=== PATIENT | female | born 1965 | race Caucasian/White ===

== ENCOUNTER 2018-11-28 09:49 | Day surgery (SDC) | payer OTHER, SELFPAY ==
[2018-11-28] VITALS (7 sets, daily range): BP systolic 106–117; BP diastolic 67–84; PULSE 86–94; RESP 10–16; TEMP 36–36.3; O2SAT 98–100; BMI 23.0
--- NOTE | 2018-11-28 11:34 | PM.HP.1 ---
History of Present Illness Date Patient Seen: 11/28/18 Time Patient Seen: 11:35 Chief complaint: [id number] Narrative: Maye is a very pleasant 52-year-old lady who presents for her 1st screening colonoscopy. She denies any problems or symptoms related to the function of her GI tract. She reports she needs colonoscopy as part of a health maintenance program. Patient History Social History household members: spouse Family & Social History Social History: household members spouse Meds Home Medications Medication Instructions Recorded Confirmed Type levothyroxine 75 mcg PO DAILY 11/28/18 11/28/18 History Allergies Allergy/AdvReac Type Severity Reaction Status Date / Time No Known Drug Allergies Allergy Verified 11/28/18 10:11 Review of Systems Review of Systems All systems reviewed & are unremarkable except as noted in HPI and below Exam Vital Signs (past 8 hours): - 11/28/18 10:07 Temperature 97.4 F L Pulse Rate 94 H Respiratory Rate 16 Blood Pressure 116/84 Pulse Oximetry 100 Oxygen Delivery Method Room Air Narrative Exam Narrative: Very well-appearing well-nourished and well-developed lady in no distress HEENT: Normocephalic atraumatic, pupils equal round reactive to light accommodation with anicteric sclera lungs: Clear bilaterally heart: Regular rate and rhythm abdomen: Soft, nontender, active bowel sounds extremities: Warm and well perfused and without edema Assessment & Plan Assessment & Plan narrative: Wonderful and generally healthy 52-year-old lady here for her 1st screening study. We have discussed the risks and benefits of colonoscopy including but not limited to infection, bleeding, damage to other organs or structures in the area, the risk of unexpected findings results, and the risk associated with anesthesia including allergic reactions, stroke, heart attack, and . The patient expressed an understanding of all of these risks and desired to complete the procedure today.
[2018-11-28] MEDS: MIDAZOLAM 5 MG/5 ML VIAL IV (11:55)
[2018-11-28] MEDS: fentaNYL 250 MCG/5 ML INJ IV (11:57)
--- NOTE | 2018-11-28 11:57 | PM.OP.1 ---
Operative Date/Time/Diagnoses Date of procedure: 11/28/18 Time of procedure: 11:57 Pre-op diagnosis: Screening Post-op diagnosis: same Procedure & Clinicians Procedure: Colonoscopy to the splenic flexure Same procedure as scheduled: No (Colonoscopy aborted for safety concerns) Indications: no prior colonoscopy Anesthesia Type: Sedation ( Versed 6 mg; fentanyl 200 mcg) Operative Notes Findings: 1. Unable to pass the scope beyond 80 cm due to a positional obstruction in the colon. At this point, the colon had the appearance of a bird's beak with twisting. In attempt to pass the colon beyond this area was causing trauma to the surrounding tissue. The procedure was aborted due to this finding. 2. no polyps or mass lesion in any of the examined colon 3. Adequate prep 4. Grade 1-2 internal hemorrhoids Closure Type: not applicable Specimen(s): none sent Estimated Blood Loss (mL): 1 Procedure in detail: After obtaining informed consent, the patient was brought to the GI suite and placed in the left lateral decubitus position on the examination table. After placement of appropriate monitors, the patient was given incremental doses of Versed and Fentanyl until an appropriate level of sedation was achieved. A time out was held per [facility] protocol. A digital rectal examination was performed and did not reveal any masses or obstructing lesions. The colonoscope was gently passed into the patient's anus and the colon navigated to 80 cm with minimal difficulty. at 80 cm, there was a twisted appearance of the colon similar to a bird's beak. In trying to pass the scope into this area, we noted significant back pressure on the scope and mild trauma to the surrounding mucosa. At this time, I made the decision to abort the procedure for the safety of the patient. The scope was withdrawn being sure to go before and beyond all mucosal folds and prominences and get an excellent examination. The findings are noted above. At the level of the rectal vault, the scope was retroflexed and the internal anal canal was examined. The scope was straightened and air aspirated from the colon. The instrument was removed from the patient's body and the procedure was concluded. The patient was allowed to awaken from sedation without difficulty and taken to the post-anesthesia care unit in good condition. Total sedation time was 22 min Complications: other ( unable to complete the procedure) Condition: stable Disposition: PACU Plan for aftercare: 1. Discharge to home 2. Plan for outpatient barium enema
--- NOTE | 2018-11-28 12:33 | SUR.PHASEI ---
stable, prepared to transfer. tolerated Po well, oriented, asking questions.
== END 2018-11-28 12:50 ==
LOC: ENDO 09:52
PROVIDERS: PCP Physician Assistant Medical; Visit Provider Surgery
PROC: 0DJD8ZZ Inspection of Lower Intestinal Tract, Via Natural or Artificial Opening Endoscopic (ICD-10-PCS; CPT 45378; principal; 2018-11-28 11:00)
DX: Z12.11 Encounter for screening for malignant neoplasm of colon (principal); Z53.09 Procedure and treatment not carried out because of other contraindication; K64.1 Second degree hemorrhoids
CPT/HCPCS: 45378; 99152; J2250; J3010

== ENCOUNTER → 2018-12-05 08:22 | Outpatient (CLI) | payer OTHER, SELFPAY ==
--- NOTE | 2018-12-05 08:23 | DI.RAD.S_ITS ---
PROCEDURE: FL ABDOMEN 1V (BARIUM ENEMA) INDICATIONS: Unable to complete colonoscopy TECHNIQUE: One view of the abdomen acquired. COMPARISON: None. FINDINGS: Surgical changes and devices: None. Bowel: Bowel gas pattern is nonobstructive however there is stool seen within the splenic flexure and right colon. Soft tissues: No suspicious abdominal calcifications. Visualized solid organ contours appear normal in size. Bones: No suspicious bony lesions. IMPRESSION: Stool is present within the splenic flexure and right colon therefore a planned barium enema was rescheduled to allow for further bowel prep. Dictated by: Kelton Peace M.D. on 12/05/2018 at 9:42 Approved by: Kelton Peace M.D. on 12/05/2018 at 9:45
== END ==
PROVIDERS: PCP Physician Assistant Medical; Visit Provider Surgery
DX: Z12.11 Encounter for screening for malignant neoplasm of colon (principal)
CPT/HCPCS: 74018

== ENCOUNTER → 2023-12-09 08:24 | Outpatient (CLI) | payer OTHER, SELFPAY ==
--- NOTE | 2023-12-09 08:25 | DI.MRI.S_ITS ---
BREAST MRI OF BOTH BREASTS: 12/09/2023 CLINICAL: High risk screening. PROCEDURE: MR BREAST BI WO/W CON INDICATIONS: High risk breast cancer screening TECHNIQUE: The patient was placed prone in a dedicated breast imaging coil. Precontrast axial STIR and 3D FLASH without fat saturation sequences were obtained. Both before and after bolus injection of contrast, sequential 1-minute axial 3D FLASH with fat saturation sequences for 3 time points, with subtraction images and maximum intensity projections (MIP's) generated. Delayed sagittal FLASH images with fat saturation were also obtained. Computer-aided detection, including computer algorithm analysis of MRI image data for lesion detection and characterization, pharmacokinetic analysis, with further physician review for interpretation, was performed. COMPARISON: Mammogram 10/07/2023. FINDINGS: Image quality: Diagnostic. There is scattered amount of fibroglandular tissue. There is minimal and symmetric background parenchymal enhancement. Right breast: No suspicious enhancement or lymphadenopathy. Left breast: No suspicious enhancement or lymphadenopathy. IMPRESSION: NEGATIVE No MRI evidence of malignancy. Recommend routine annual mammographic and MRI screening. This exam was interpreted at Station ID: [id number]. Electronically Signed By: Rosenda Vogt M.D., PH.D eb/:12/10/2023 02:11:07 ACR BI-RADS Category 1: Negative [id number]
== END ==
LOC: MRI 08:24
PROVIDERS: PCP Physician Assistant Medical; Referring Provider Physician Assistant Medical; Visit Provider Physician Assistant Medical
DX: Z12.39 Encounter for other screening for malignant neoplasm of breast (principal)
CPT/HCPCS: 77049; A9579